=== PATIENT | male | born 1985 | race Caucasian/White ===

== ENCOUNTER 2016-07-15 14:08 | Emergency (ER) | payer OTHER ==
[~2016-07-15] VITALS: Ht 175.3 cm; Wt 86.6 kg
[2016-07-15 14:14] VITALS: TEMP 36.8; Ht 175.3 cm; Wt 86.6 kg
--- NOTE | 2016-07-15 14:43 | EMERGENCY ROOM VISIT NOTE ---
ED Visit Note First contact with patient: 14:23 CHIEF COMPLAINT: Toothache HISTORY OF PRESENT ILLNESS: This 31-year-old male patient has had a progressive right lower molar toothache for one week. The pain is now steady and severe and radiates to the face. He denies any fever or facial swelling. The patient has an appointment with the dentist on August 14. That was the earliest appointment when he called earlier this week due to the pain. The patient has been taking ibuprofen without any relief. He did drive himself to the emergency room today. REVIEW OF SYSTEMS: 6 system review was performed and was negative unless stated otherwise in history of present illness. PMH: The patient is healthy; there is no significant medical or surgical history. SOCIAL HISTORY: Patient lives alone. The patient admits to tobacco use but denies any alcohol use. PHYSICAL EXAM: Vital Signs: Were reviewed Reviewed Nurse's notes. GENERAL: 31- year-old white male appears uncomfortable secondary to tooth pain. MENTAL Status: Alert and oriented 3. MOUTH: The right lower molars are broken off and appeared very carious at the surface of the gums. Surrounding erythema of the gingiva. FACE: There is no facial swelling, NECK: No cervical or submandibular lymphadenopathy. DIAGNOSIS: Dental caries and gingivitis DISCHARGE INSTRUCTIONS & TREATMENT: Ibuprofen or Aleve as directed for pain. Take [place] as needed for more severe pain. Do not drive while taking the [place]. Take amoxicillin as prescribed. Keep scheduled appointment with your dentist on August 14 for definitive care. Current/Historical Medications No Active Prescriptions or Reported Meds Allergies Coded Allergies: No Known Allergies (Verified , 03/30/14) Vital Signs Date Time Temp Pulse Resp B/P (MAP) Pulse Ox O2 Delivery O2 Flow Rate FiO2 07/15/16 14:14 36.8 92 18 160/107 97 Room Air Departure Information Prescriptions No Active Prescriptions or Reported Meds Referrals No Doctor, Assigned (PCP) Patient Instructions [facility]
[2016-07-15] MEDS ORDERED: HYDR-5688 PO (14:45)
[2016-07-15] MEDS ORDERED: AMOX500C3 PO (14:45)
[2016-07-15 15:06] VITALS: BP 152/107; PULSE 91; O2SAT 96
== END 2016-07-15 15:30 | disposition home or self-care (01) ==
LOC: C.EDB 14:09 → C.EDD 15:30
DX: K02.9 Dental caries, unspecified (principal); K05.10 Chronic gingivitis, plaque induced; F17.200 Nicotine dependence, unspecified, uncomplicated

== ENCOUNTER 2016-08-21 11:26 | Emergency (ER) | payer OTHER ==
[~2016-08-21] VITALS: Ht 175.3 cm; Wt 88.4 kg
[~2016-08-21 11:26] MED LIST: HYDR-5688 PO
[2016-08-21 11:29] VITALS: TEMP 36.7; Ht 175.3 cm; Wt 88.4 kg
[2016-08-21] MEDS ORDERED: IBUP-103 PO (11:58)
--- NOTE | 2016-08-21 12:06 | DIAGNOSTIC IMAGING REPORT ---
CT HEAD WITHOUT CONTRAST (CT) CLINICAL HISTORY: Head trauma. Headache. Blurry vision. COMPARISON STUDY: 11/19/2014 TECHNIQUE: Axial CT of the brain is performed from the vertex to the skull base. IV contrast was not administered for this examination. CT DOSE: 537.48 mGy.cm FINDINGS: No intra or extra-axial mass lesions are visualized. There is no CT evidence of acute cortical infarction. There is no evidence of midline shift. There is no acute hemorrhage. No calvarial fractures are visualized. There is no evidence of pathologic ventricular dilatation. There is no evidence of acute sinusitis IMPRESSION: Normal noncontrast head CT. Electronically signed by: Judd Verdugo M.D. 08/21/2016 12:05 PM Dictated Date/Time: 08/21/2016 12:04 PM
[2016-08-21] MEDS ORDERED: KETOROLAC TROMETHAMINE 60 MG/2 ML VIAL IM STA (12:13)
--- NOTE | 2016-08-21 12:19 | EMERGENCY ROOM VISIT NOTE ---
ED Visit Note First contact with patient: 11:41 CHIEF COMPLAINT: Head injury HISTORY OF PRESENT ILLNESS: This 81-year-old male patient presented to the emergency department 1 day after receiving a head injury when a branch fell on his head. The patient states he was cutting a tree branch above his head with a saw, when it came down and hit him on the top of the head. He states the branch only fell approximately 2-3 feet. He reports initial pain, however stated it did improve as the evening went on. He states he did awake throughout the night with a pounding headache and neck stiffness. The patient is now reporting significant headache, pressure in his head, visual changes. There was no loss of consciousness. There has been no vomiting. The patient denies altered mental status, confusion, nausea, vomiting. The headache has been constant. The patient complains of mild neck pain which he describes as stiffness. The patient has taken 400 mg ibuprofen this morning and last night for the pain with no relief. The patient rates the pain as 9/10 and constant. The patient denies bowel or bladder dysfunction. The patient denies any other injuries. REVIEW OF SYSTEMS: A 10-system review of systems was performed with positives and pertinent negatives listed in the history of present illness. All other systems were reviewed and are negative. ALLERGIES: None MEDICATIONS: None PMH: None SOCIAL HISTORY: The patient lives locally alone. He denies drug, alcohol use. He does report smoking one half pack cigarettes per day. PHYSICAL EXAM: Vital Signs: Reviewed Nurse's notes, vital signs stable. GENERAL : A 31-year-old male, in no acute distress, well-developed, well-nourished. NEURO: The patient is alert, oriented to person place and time, and coherent. Normal mini mental status exam. Negative Romberg and pronator drift. Cerebellar function intact. HEAD: Normocephalic, atraumatic. No obvious deformity or injury noted. No hematoma noted EYES: Pupils are equal round and reactive to light and accommodation. EOMs are full and optic discs and fundi are normal. There is no swelling or discoloration of the tissue surrounding the eyes. EARS: External auditory canals clear without blood. NOSE: Patent without tenderness. No septal hematoma. FACE: No facial bone tenderness. NECK: Supple. There is no cervical spine tenderness. The patient does not have tenderness with movement of the neck. RADIOLOGY: CT Head without Contrast: FINDINGS: No intra or extra-axial mass lesions are visualized. There is no CT evidence of acute cortical infarction. There is no evidence of midline shift. There is no acute hemorrhage. No calvarial fractures are visualized. There is no evidence of pathologic ventricular dilatation. There is no evidence of acute sinusitis IMPRESSION: Normal noncontrast head CT. ED COURSE: I examined the patient. CT scan of the head was performed and reviewed by myself and interpreted by radiologist. No acute findings noted. The patient was given a dose of Toradol 60 mg IM. The patient was discharged home in good condition ambulatory. DIFFERENTIAL DIAGNOSIS: Closed head injury or concussion, headache, migraine, intracranial hemorrhage, hematoma, cervical spine fracture, and others. DIAGNOSIS: Head injury DISCHARGE INSTRUCTIONS: You have been treated in the Emergency Department for a Closed Head Injury. CT Scan of your head/brain demonstrated no acute bleeding or other abnormalities. This does not completely rule out the risk for future damage to the brain. For pain control, you can use the following asuc-zmi-dcqpcya medicines (if >12 yo): - Extra strength (500mg/tab) Tylenol (acetaminophen) 2 tabs every 6-8 hours as needed. Do not exceed 6 tablets in a 24 hour period. Avoid taking more than 3 grams (3000 mg) of Tylenol per day. This includes any other sources of acetaminophen you may take on a regular basis. - Regular strength (200 mg/tab) Advil (ibuprofen) 2-3 tabs every 4-6 hours as needed. Do not exceed a dose of 3200 mg per day. You may alternate these medications every 3-4 hours if needed for increased pain control. You should relax in a quiet, dark place for the rest of the day. Avoid any possible triggers including: cigarette smoke, caffeine, nicotine, chocolate, wine, beer, loud noises or music, or bright lights. You should schedule a follow-up appointment in 2-3 days with your Primary Care Provider or established Neurologist for further evaluation and treatment of your Headache. Please avoid excessive physical activity or yard work until you are headache free for at least 24 hours. Please follow-up closely regarding further physical activity with your PCP or neurologist. Return to the Emergency Department if your current symptoms worsen despite treatment course outlined above, or if you develop any of the following symptoms : intractable pain despite aforementioned treatment course, visual disturbances , loss of vision, unilateral weakness or facial drooping, slurring of speech, loss of coordination, or loss of consciousness. Current/Historical Medications Scheduled PRN Ibuprofen Tab (Advil), 200-600 MG PO Q4H PRN for Pain Allergies Coded Allergies: No Known Allergies (Verified , 07/15/16) Vital Signs Date Time Temp Pulse Resp B/P (MAP) Pulse Ox O2 Delivery O2 Flow Rate FiO2 08/21/16 12:23 83 18 127/95 96 08/21/16 11:29 36.7 100 18 152/94 96 Room Air Medications Administered Medications (Trade) Dose Ordered Sig/Kait Route Start Time Stop Time Status Last Admin Dose Admin Ketorolac Tromethamine (Toradol Inj) 60 mg NOW STAT IM 08/21/16 12:13 08/21/16 12:15 DC 08/21/16 12:18 60 MG Departure Information Impression Primary Impression: Closed head injury Dispostion Home / Self-Care Condition GOOD Referrals No Doctor, Assigned (PCP) Patient Instructions ED Head Injury Closed, [facility] Additional Instructions You have been treated in the Emergency Department for a Closed Head Injury. CT Scan of your head/brain demonstrated no acute bleeding or other abnormalities. This does not completely rule out the risk for future damage to the brain. For pain control, you can use the following qvzk-tgr-ptrohzn medicines (if >12 yo): - Extra strength (500mg/tab) Tylenol (acetaminophen) 2 tabs every 6-8 hours as needed. Do not exceed 6 tablets in a 24 hour period. Avoid taking more than 3 grams (3000 mg) of Tylenol per day. This includes any other sources of acetaminophen you may take on a regular basis. - Regular strength (200 mg/tab) Advil (ibuprofen) 2-3 tabs every 4-6 hours as needed. Do not exceed a dose of 3200 mg per day. You may alternate these medications every 3-4 hours if needed for increased pain control. You should relax in a quiet, dark place for the rest of the day. Avoid any possible triggers including: cigarette smoke, caffeine, nicotine, chocolate, wine, beer, loud noises or music, or bright lights. You should schedule a follow-up appointment in 2-3 days with your Primary Care Provider or established Neurologist for further evaluation and treatment of your Headache. Please avoid excessive physical activity or yard work until you are headache free for at least 24 hours. Please follow-up closely regarding further physical activity with your PCP or neurologist. Return to the Emergency Department if your current symptoms worsen despite treatment course outlined above, or if you develop any of the following symptoms : intractable pain despite aforementioned treatment course, visual disturbances , loss of vision, unilateral weakness or facial drooping, slurring of speech, loss of coordination, or loss of consciousness. Problem Qualifiers Primary Impression: Closed head injury Encounter type: initial encounter Qualified Codes: S09.90XA - Unspecified injury of head, initial encounter
[2016-08-21 12:23] VITALS: BP 127/95; PULSE 83; O2SAT 96
== END 2016-08-21 12:24 | disposition home or self-care (01) ==
LOC: C.EDB 11:28 → C.EDD 12:24
DX: S09.90XA Unspecified injury of head, initial encounter (principal); W20.8XXA Other cause of strike by thrown, projected or falling object, initial encounter

== ENCOUNTER 2016-09-10 18:51 | Emergency (ER) | payer SELFPAY ==
[~2016-09-10] VITALS: Ht 175.3 cm; Wt 88.6 kg
[~2016-09-10 18:51] MED LIST changes: -HYDR-5688 PO; +IBUP-103 PO
[2016-09-10 18:54] VITALS: BP 155/99; PULSE 109; TEMP 36.7; O2SAT 96; Ht 175.3 cm; Wt 88.6 kg
[2016-09-10] MEDS ORDERED: NORCO 5/325MG HOME PACK PO STA (19:09)
[2016-09-10] MEDS ORDERED: AMOXICILLIN HOME PACK 250 MG/TAB PO STA (19:09)
[2016-09-10] MEDS ORDERED: AMOX500T3 PO (19:11)
[2016-09-10] MEDS ORDERED: HYDR-5688 PO (19:11)
--- NOTE | 2016-09-10 19:16 | EMERGENCY ROOM VISIT NOTE ---
ED Visit Note First contact with patient: 19:03 CHIEF COMPLAINT: Toothache HISTORY OF PRESENT ILLNESS: This 31-year-old male patient presented to the emergency department via private vehicle with a progressive toothache for past day. He states that yesterday evening he was eating a sourdough pretzel, and injured his right inferior dentition. The patient believes it is coming from right inferior dentition. The pain is now steady and severe and radiates to the face. The patient has a dentist appointment set up for the end of month of which she will then have his teeth extracted in [place]. They rate their pain a 7/10 and the ibuprofen and saltwater gargle they have been taking has not relieved the pain. Denies facial swelling or fever. The patient denies any discharge from the mouth. REVIEW OF SYSTEMS: A 6 system review of systems was completed with positives and pertinent negatives listed in the HPI. ALLERGIES: None MEDICATIONS: As noted below PMH: No pertinent SOCIAL HISTORY: Patient lives with self, and is currently employed. PHYSICAL EXAM: Vitals are noted on the nurse's note and reviewed by myself. Vital signs stable. Temperature 36.7C orally. GENERAL: 31-year-old male, in no acute distress, nondiaphoretic, well-developed well-nourished. Mouth: The inferior dentition tooth is very carious and the gum is swollen and tender around it, without any discharge or signs of an abscess. The remainder of the pharynx and tonsils are without erythema, edema, or exudate. The airway is patent. There is no facial swelling, cervical or submandibular lymphadenopathy. The patient appears uncomfortable and in pain. The patient has overall poor dental hygiene. ED COURSE: Patient was seen and evaluated as above. Previous visits were reviewed, treatment plan list was reviewed, as well as the [employer] drug monitoring system. No red flags were identified. At this time he does have very carious dentition, of which seem to be quite painful. I will give him a short-term prescription of amoxicillin, as well as [place] for his pain. He is to follow-up with his dentist in [place] again the month for complete extraction of his teeth. He is to return with worsening. He is to follow up with family doctor for the elevated blood pressure. He was educated upon worrisome symptoms which to return, had questions prior to discharge, and was discharged home in good condition. In the evaluation and treatment of this patient, the following differential diagnoses were considered: Periapical Abscess, Osteonecrosis of the Jaw, Dental Fracture, Dental Caries, Dimitri's Angina, Vincent's Angina, Facial Cellulitis. Current/Historical Medications Scheduled Amoxicillin (Amoxil), 1 TAB PO TID Scheduled PRN Hydrocodone/Acetaminophen 5MG/325MG ([place] 5MG/325MG), 1-2 TABLET PO Q6 PRN for Pain Ibuprofen Tab (Advil), 200-600 MG PO Q4H PRN for Pain Allergies Coded Allergies: No Known Allergies (Verified , 09/10/16) Vital Signs Date Time Temp Pulse Resp B/P (MAP) Pulse Ox O2 Delivery O2 Flow Rate FiO2 09/10/16 18:54 36.7 109 16 155/99 96 Room Air Departure Information Impression Primary Impression: Dental caries Additional Impression: Odontalgia Dispostion Home / Self-Care Condition GOOD Prescriptions Hydrocodone/Acetaminophen 5MG/325MG ([place] 5MG/325MG) Tab 1-2 TABLET PO Q6 Y for Pain, #15 TAB For Initial Treatment Prov: Jose Francisco Jackson PA-C 09/10/16 Amoxicillin (AMOXIL) 500 Mg Tab 1 TAB PO TID for 9 Days, #27 TAB Prov: Jose Francisco Jackson PA-C 09/10/16 Referrals No Doctor, Assigned (PCP) Patient Instructions [facility] Additional Instructions You have been treated in the Emergency Department for Dental Pain. You have received pain medicine in the emergency department which impairs your ability to operate a vehicle. It is illegal for you to drive after receiving these medicines. You have been prescribed NORCO to be used for pain control. This is a narcotic medication. You cannot drive or consume alcohol while on this medicine. This medicine should only be used for pain that cannot be controlled with over-the- counter pain medicines. You were prescribed Amoxicillin to be taken daily. This is an antibiotic. All antibiotics have the potential to cause diarrhea. Stop this medication and contact a medical provider if you were to develop any significant adverse side effects including: wheezing, shortness of breath, passing out, vomiting, or a diffuse rash. Always take antibiotics as directed and COMPLETE the ENTIRE course regardless of the improvement of your symptoms. For pain control, you can use the following cktf-ymw-rjpmrow medicines (if >12 yo): - Regular strength (325mg/tab) Tylenol (acetaminophen) 2 tabs every 4-6 hours as needed. Do not exceed 12 tablets in a 24 hour period. Avoid taking more than 3 grams (3000 mg) of Tylenol per day. This includes any other sources of acetaminophen you may take on a regular basis. No Tylenol with [place]. - Regular strength (200 mg/tab) Advil (ibuprofen) 1-2 tabs every 4-6 hours as needed. Do not exceed a dose of 3200 mg per day. Refrain from smoking cigarettes or using chewing tobacco until you have been evaluated by your dentist. Keeping beverages lukewarm and consuming soft foods can decrease your pain. Warm compresses over the affected area may offer some relief. You MUST seek evaluation of your dental pain by a dentist following your visit to the Emergency Department. The Emergency Department is not capable of treating dental issues long-term. You should call your dentist as soon as possible to make an appointment for evaluation of your dental pain. Return to the emergency department if you develop the following symptoms despite treatment course outlined above: fever, intractable pain, increased redness, swelling, or purulent discharge. Please return to emergency department with new/concerning symptoms. Problem Qualifiers
== END 2016-09-10 19:25 | disposition home or self-care (01) ==
LOC: C.EDB 18:52 → C.EDD 19:25
DX: K02.9 Dental caries, unspecified (principal); K08.89 Other specified disorders of teeth and supporting structures

== ENCOUNTER 2016-11-09 10:51 | Emergency (ER) | payer SELFPAY ==
[~2016-11-09] VITALS: Ht 175.3 cm; Wt 82.0 kg
[~2016-11-09 10:51] MED LIST changes: +AMOX500T3 PO; +HYDR-5688 PO
[2016-11-09 10:57] VITALS: BP 167/113; PULSE 116; TEMP 37.1; O2SAT 98; Ht 175.3 cm; Wt 82.0 kg
[2016-11-09] MEDS ORDERED: PENI-82 PO (11:35)
--- NOTE | 2016-11-09 11:35 | EMERGENCY ROOM VISIT NOTE ---
ED Visit Note First contact with patient: 11:21 CHIEF COMPLAINT: Toothache HISTORY OF PRESENT ILLNESS: This 31-year-old male patient presented to the emergency department ambulatory with a progressive toothache for past 2 days. The patient believes it is coming from right upper central incisor. The pain is now steady and severe and radiates to the face. The patient does a dentist appointment set up next month. They rate their pain a 9/10 and the ibuprofen and Tylenol they have been taking has not relieved the pain. Denies facial swelling or fever. The patient denies any discharge from the mouth. REVIEW OF SYSTEMS: A 10 system review of systems was completed with positives and pertinent negatives listed in the HPI. ALLERGIES: No known drug allergies MEDICATIONS: Patient denies PMH: Patient denies SOCIAL HISTORY: The patient does not live locally PHYSICAL EXAM: Vitals are noted on the nurse's note and reviewed by myself. Vital signs stable. Temperature 37.1C orally. GENERAL: This is a 31-year-old male, in no acute distress, nondiaphoretic, well-developed well-nourished. Mouth: Most of the teeth are very decayed without any discharge or signs of an abscess. The remainder of the pharynx and tonsils are without erythema, edema, or exudate. The airway is patent. There is no facial swelling, cervical or submandibular lymphadenopathy. The patient appears uncomfortable and in pain. The patient has overall poor dental hygiene. ED COURSE: The patient presents to the emergency department with complaints of dental pain. He has no fever or swelling. The patient states that his symptoms started 2 days ago. He states that he had work done on his teeth last month. When I inspect the mouth, there is no sign of any dental work. I asked the patient what procedure he had done and he could not tell me. The patient states that he has a follow-up appointment with the dentist next month. When I reviewed the [employer], the patient clearly had been ER shopping in the recent past. The patient has seen providers and multiple cities in the [facility] over the last several years. He has had 40 different prescribers with prescriptions filled at 18 different pharmacies and a total of 52 prescriptions. This was since 2013. I certainly suspect that the patient is displaying drug-seeking behavior. There is no clinical evidence of the swelling, fever, drainage. I agreed to give him an antibiotic. I declined to give him narcotics. I recommended Tylenol and ibuprofen. He should follow-up with a dentist for definitive management. Current/Historical Medications Scheduled Penicillin V Potassium (Veetids), 500 MG PO QID Allergies Coded Allergies: No Known Allergies (Verified , 11/09/16) Vital Signs Date Time Temp Pulse Resp B/P (MAP) Pulse Ox O2 Delivery O2 Flow Rate FiO2 11/09/16 10:57 37.1 116 18 167/113 98 Room Air Departure Information Impression Primary Impression: Dental caries Dispostion Home / Self-Care Condition GOOD Prescriptions Penicillin V Potassium (Veetids) 500 Mg Tab 500 MG PO QID, #40 TAB Prov: Elva Balbuena PA-C 11/09/16 Referrals No Doctor, Assigned (PCP) Patient Instructions [facility] Additional Instructions Motrin 600 mg every 6-8 hours or moderate pain Pen-Vee K as prescribed, until finished to treat and prevent infection Contact your dentist for definitive management Return with fevers, swelling, drainage or generalized worsening symptoms
== END 2016-11-09 11:50 | disposition home or self-care (01) ==
LOC: C.EDB 10:52 → C.EDD 11:50
DX: K02.9 Dental caries, unspecified (principal)

== ENCOUNTER 2017-04-22 15:18 | Emergency (ER) | payer SELFPAY ==
[~2017-04-22] VITALS: Ht 175.3 cm; Wt 90.9 kg
[~2017-04-22 15:18] MED LIST changes: -AMOX500T3 PO; -HYDR-5688 PO; -IBUP-103 PO; +PENI-82 PO
[2017-04-22 15:20] VITALS: BP 161/121; PULSE 101; TEMP 36.8; O2SAT 98; Ht 175.3 cm; Wt 90.9 kg
[2017-04-22] MEDS ORDERED: OXYC1TAB3 PO (15:34)
[2017-04-22] MEDS ORDERED: AMX500 PO (15:34)
--- NOTE | 2017-04-22 15:37 | EMERGENCY ROOM VISIT NOTE ---
ED Visit Note First contact with patient: 15:24 CHIEF COMPLAINT: "Toothache and swelling in face/jaw". HISTORY OF PRESENT ILLNESS: This 32-year-old male patient presented to the emergency department via private vehicle with a progressive toothache for past 4 days. The patient believes it is coming from right inferior anterior dentition. The pain is now steady and severe and radiates to the face. The patient does not have a dentist. They rate their pain a 10/10 and the ibuprofen and Tylenol they have been taking has not relieved the pain. No fever. He does note minimal swelling which began yesterday evening on the cheek around the area that the tooth is giving him trouble. He states this all seem to have started Sunday night after he ate a chicken nuggets. REVIEW OF SYSTEMS: A 6 system review of systems was completed with positives and pertinent negatives listed in the HPI. ALLERGIES: NKDA MEDICATIONS: As noted below PMH: Dental ailments SOCIAL HISTORY: Pt. lives locally PHYSICAL EXAM: Vitals are noted on the nurse's note and reviewed by myself. Vital signs stable. Temperature 36.8C orally. GENERAL: 32-year-old male, in no acute distress, nondiaphoretic, well-developed well-nourished. Mouth: The inferior right lateral and posterior dentition is very carious and the gum is swollen and tender around it, without any discharge or signs of an abscess. There is edema overlying the right inferior jawline near this tooth. No palpable abscess. The remainder of the pharynx and tonsils are without erythema , edema, or exudate. The airway is patent. There is no tenderness under the tongue, under the chin or in the neck. No evidence of Dimitri Angina. The patient appears uncomfortable and in pain. The patient has overall poor dental hygiene. EARS: External auditory canals clear, tympanic membranes pearly cabrera without erythema or effusion bilaterally. ED COURSE: Patient was seen and evaluated as above in room D9. I have seen this patient on a previous visit in September of last year. He has a history of poor dentition. The patient presents to us today with minimal facial swelling on the right anterior mid jawline which is minimal. He does appear to be in pain. He has tried [id number] medications. Review was had of the PDMP and it appears that the last prescription in the system was from the visit that I saw him for. I do believe that management at this time should focus upon the likely dental infection which is beginning which will be treated with amoxicillin, and his pain with oxycodone. He is to return with worsening. I did provide him contact information for local dentist. There is no evidence of Dimitri angina. Airway is patent. He is not septic appearing. I informed him that the emergency department is not capable of removing teeth. This is likely what he will need. He verbalizes understanding and notes that he will follow with the dentist. He was educated upon management, educated upon worrisome symptoms which to return, had questions in spite of discharge, and was discharged home in good condition. In the evaluation and treatment of this patient, the following differential diagnoses were considered: Periapical Abscess, Osteonecrosis of the Jaw, Dental Fracture, Dental Caries, Dimitri's Angina, Vincent's Angina, Facial Cellulitis. Current/Historical Medications Scheduled Amoxicillin (Amoxicillin), 500 MG PO TID Scheduled PRN Acetaminophen (Tylenol), 1,000 MG PO DIRECTED PRN for Pain Benzocaine (Dental) (Anbesol), 1 DOSE MT DIRECTED PRN for Pain Ibuprofen (Advil), 200-600 MG PO Q4H PRN for Pain Oxycodone Ir (Roxicodone Ir), 1-2 TAB PO Q4H PRN for Pain Allergies Coded Allergies: No Known Allergies (Verified , 04/22/17) Vital Signs Date Time Temp Pulse Resp B/P (MAP) Pulse Ox O2 Delivery O2 Flow Rate FiO2 04/22/17 15:20 36.8 101 18 161/121 98 Room Air Departure Information Impression Primary Impression: Odontalgia Dispostion Home / Self-Care Condition GOOD Prescriptions Oxycodone Ir (Roxicodone Ir) 5 Mg Tab 1-2 TAB PO Q4H Y for Pain, #18 TAB For Initial Treatment Prov: Jose Francisco Jackson PA-C 04/22/17 Amoxicillin (Amoxicillin) 500 Mg Cap 500 MG PO TID for 10 Days, #30 TABS Prov: Jose Francisco Jackson PA-C 04/22/17 Referrals No Doctor, Assigned (PCP) Patient Instructions My [facility] Additional Instructions You have been treated in the Emergency Department for Dental Pain. You have been prescribed Oxy IR to be used for pain control. This is a narcotic medication. You cannot drive or consume alcohol while on this medicine. This medicine should only be used for pain that cannot be controlled with over-the- counter pain medicines. You were prescribed Amoxicillin to be taken every 8 hours. This is an antibiotic. All antibiotics have the potential to cause diarrhea. Stop this medication and contact a medical provider if you were to develop any significant adverse side effects including: wheezing, shortness of breath, passing out, vomiting, or a diffuse rash. Always take antibiotics as directed and COMPLETE the ENTIRE course regardless of the improvement of your symptoms. For pain control, you can use the following [id number] medicines (if >12 yo): - Regular strength (325mg/tab) Tylenol (acetaminophen) 2 tabs every 4-6 hours as needed. Do not exceed 12 tablets in a 24 hour period. Avoid taking more than 3 grams (3000 mg) of Tylenol per day. This includes any other sources of acetaminophen you may take on a regular basis. - Regular strength (200 mg/tab) Advil (ibuprofen) 1-2 tabs every 4-6 hours as needed. Do not exceed a dose of 3200 mg per day. Refrain from smoking cigarettes or using chewing tobacco until you have been evaluated by your dentist. Keeping beverages lukewarm and consuming soft foods can decrease your pain. Warm compresses over the affected area may offer some relief. You MUST seek evaluation of your dental pain by a dentist following your visit to the Emergency Department. The Emergency Department is not capable of treating dental issues long-term. You should call your dentist as soon as possible to make an appointment for evaluation of your dental pain. Dr. Truman Castellanos, DMD [phone] [address], [address]. [place], [place] Return to the emergency department if you develop the following symptoms despite treatment course outlined above: fever, intractable pain, increased redness, swelling, or purulent discharge.
[2017-04-22] MEDS ORDERED: ACET-1256 PO (15:39)
[2017-04-22] MEDS ORDERED: BENZ10GE38 MT (15:39)
[2017-04-22] MEDS ORDERED: IBUP-1050 PO (15:39)
== END 2017-04-22 15:41 | disposition home or self-care (01) ==
LOC: C.EDB 15:20 → C.EDD 15:41
DX: K02.9 Dental caries, unspecified (principal)

== ENCOUNTER 2017-08-31 12:12 | Emergency (ER) | payer SELFPAY ==
[~2017-08-31] VITALS: Ht 177.8 cm; Wt 87.0 kg
[~2017-08-31 12:12] MED LIST changes: +ACET-1256 PO; +BENZ10GE38 MT; +IBUP-1050 PO; +OXYC-90 PO; -PENI-82 PO
[2017-08-31 12:13] VITALS: TEMP 36.8; Ht 177.8 cm; Wt 87.0 kg
--- NOTE | 2017-08-31 13:16 | DIAGNOSTIC IMAGING REPORT ---
R HIP UNILATERAL 2 VIEWS CLINICAL HISTORY: Right hip pain. COMPARISON: None. DISCUSSION: No fractures or dislocations are visualized. There are no erosive or destructive changes. IMPRESSION: Unremarkable conventional radiographic evaluation of the right hip. Electronically signed by: Judd Verdugo M.D. 08/31/2017 1:15 PM Dictated Date/Time: 08/31/2017 1:14 PM
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
[2017-08-31 13:40] VITALS: BP 148/82; PULSE 72; O2SAT 99
== END 2017-08-31 13:40 | disposition home or self-care (01) ==
LOC: C.EDB 12:12 → C.EDD 13:40
DX: S76.011A Strain of muscle, fascia and tendon of right hip, initial encounter (principal); M25.551 Pain in right hip; X50.9XXA Other and unspecified overexertion or strenuous movements or postures, initial encounter; Y92.89 Other specified places as the place of occurrence of the external cause; F17.210 Nicotine dependence, cigarettes, uncomplicated; Z87.828 Personal history of other (healed) physical injury and trauma; Z79.899 Other long term (current) drug therapy